=== PATIENT | female | born 1980 | race Caucasian/White ===

== ENCOUNTER 2020-05-02 20:13 | Emergency (ER) | payer OTHER ==
[~2020-05-02] VITALS: Ht 170.2 cm; Wt 90.7 kg
[2020-05-02 20:17] VITALS: BP 141/97
--- NOTE | 2020-05-02 20:17 | NUR ---
GARFIELD MCCLAIN. TAKEN TO CHAIR C
--- NOTE | 2020-05-02 20:21 | NUR ---
PT MOVED TO ER BED 11
--- NOTE | 2020-05-02 20:26 | NUR ---
Dr. Bobo examining patient.
[2020-05-02] MEDS ORDERED: IBUPROFEN 800 MG TAB PO ONE (20:30)
[2020-05-02] MEDS ORDERED: SULFAMETH/TRIMETH DS 800/160MG 1 TAB PO ONE (20:30)
--- NOTE | 2020-05-02 20:39 | NUR ---
ON AWAKE COUNSELOR CALLED FOR HOMELESS PACKET.
--- NOTE | 2020-05-02 20:50 | NUR ---
MR TEACHER CALLED FOR HOMELESS PACKET AND MEAL FOR PATIENT.
--- NOTE | 2020-05-02 21:01 | NUR ---
PT GIVEN SANDWICH HERE AND A MEAL BAG TO GO, ALONG WITH PANTS AND HOMELESS RESOURCES PACKET.
[2020-05-02] MEDS ORDERED: HYDRAGUARD CREAM TP ONE ×2 (21:08→21:10)
[2020-05-02 21:21] VITALS: BP 141/97
--- NOTE | 2020-05-02 21:22 | NUR ---
Patient discharged with v/s stable. Written and verbal after care instructions given and explained. Patient alert, oriented and verbalized understanding of instructions. Ambulatory with steady gait. All questions addressed prior to discharge. ID band removed. Patient advised to follow up with PMD. Rx of MOTRIN AND BACTRIM given. Patient educated on indication of medication including possible reaction and side effects. Opportunity to ask questions provided and answered. PT SUPPLIED WITH A BUS PASS, BAGGED MEAL, AND HOMELESS RESOURCE PACKET.
== END 2020-05-02 21:22 | disposition home or self-care (01) ==
LOC: MED 20:13
DX: L70.9 Acne, unspecified (principal); L30.4 Erythema intertrigo; I10 Essential (primary) hypertension; F15.90 Other stimulant use, unspecified, uncomplicated; Z59.0 Homelessness
CPT/HCPCS: 99284